=== PATIENT | male | born 1955 | race Caucasian/White ===

== ENCOUNTER 2020-01-05 11:02 | Outpatient (CLI) | payer BC, SELFPAY ==
--- NOTE | ~2020-01-05 | CT_ITS ---
EXAMINATION: CT abdomen w con EXAM DATE: 01/05/2020 13:08 INDICATION: Upper abdominal pain. TECHNIQUE: Spiral CT of the abdomen was performed following intravenous injection of 100 mL Omnipaque 350. Axial, coronal and sagittal images were reviewed. The dose-length product (DLP) for this exam ination was 181.02 mGy-cm. The exposure was tailored according to patient size (auto mA exposure con trol), and iterative reconstruction (ASIR) was used as additional dose reduction technique. Compariso n is made to prior examination from 08/04/2013. FINDINGS: The liver, spleen, adrenal glands and pancreas are unremarkable. Gallbladder is unremarkab le. No biliary obstruction. Portal and splenic veins are patent. Kidneys enhance symmetrically. T here is no hydronephrosis. There is no retroperitoneal lymphadenopathy. There is moderate scatte red arteriosclerotic disease. There is moderate scattered colonic diverticulosis. There is no adjacent inflammatory change to sugg est diverticulitis. The stomach and small bowel are unremarkable. There is expected amount of coloni c stool. No free intraperitoneal gas. The heart is normal in size. There are no pericardial or p leural effusions. The lung bases are unremarkable. There are no osteoblastic or osteolytic lesions identified. IMPRESSION: No acute intra-abdominal findings. Reviewed, dictated and finalized at location A.
[2020-01-05 11:15] LABS: Basophils Absolute Auto 0.05 K/mm3 (0.00-0.10); Basophils Percent Auto 0.6 % (0.0-1.0); Eosinophils Absolute Auto 0.24 K/mm3 (0.02-0.50); Eosinophils Percent Auto 2.8 % (1.0-6.0); Hematocrit 47.4 % (40.0-54.0); Hemoglobin 15.9 g/dL (14.0-18.0); Immature Granulocyte Absolute 0.04 K/mm3 (0.00-0.00); Immature Granulocyte Percent A 0.5 % (0.0-0.0); Lymphocytes Absolute Auto 2.46 K/mm3 (1.10-4.50); Lymphocytes Percent Auto 28.4 % (18.0-42.0); Mean Corpuscular HGB Conc 33.5 g/dL (32.0-36.0); Mean Corpuscular Hemoglobin 29.8 pg (27.0-31.0); Mean Corpuscular Volume 88.9 fL (78.0-102.0); Mean Platelet Volume 9.6 fl (8.7-11.0); Monocytes Absolute Auto 0.61 K/mm3 (0.10-0.90); Neutrophils Absolute Auto 5.3 K/mm3 (1.7-7.2); Neutrophils Percent Auto 60.7 % (50.0-70.0); Platelet Count Result 306 K/mm3 (150-420); Red Blood Count 5.33 M/mm3 (4.70-6.10); Red Cell Distribution Width 13.5 % (11.6-14.4); White Blood Count 8.7 K/mm3 (4.8-10.8)
[2020-01-05 11:28] LABS: Add Urine Microscopic? NO; Appearance Urine Clear (Clear); Bilirubin Urine Negative (Negative); Blood Urine Negative (Negative); Color Urine Yellow (Yellow); Glucose Urine UA Negative (Negative); Ketones Urine Negative (Negative); Leukocyte Esterase Ur Negative LEU/UL (Negative); Nitrate Urine Negative (Negative); Protein Urine Negative (Negative); Specific Grav Ur 1.015 (1.010-1.020); Urobilinogen Urine 0.2 mg/dL (0.2-1.0); pH Urine 7.5 (5.0-8.0)
[2020-01-05 11:32] LABS: Alanine Aminotransferase 22 U/L (16-63); Albumin Level 3.4 g/dL (3.4-5.0); Alkaline Phosphatase 81 U/L (46-116); Amylase 55 U/L (25-115); Anion Gap 10.3 mmol/L (7-16); Aspartate Amino Transferase 16 U/L (15-37); Bilirubin,Total 0.5 mg/dL (0.00-1.00); Blood Urea Nitrogen 12 mg/dL (7-18); Calcium 8.6 mg/dL (8.5-10.1); Carbon Dioxide 29 mmol/L (21-32); Chloride 103 mmol/L (98-108); Estimated Glomerular Filt Rate > 60; Glucose 102 mg/dL (70-99); Lipase 89 U/L (73-393); Osmolality Calculated 285 mOsm/kg (285-295); Potassium 4.3 mmol/L (3.5-5.1); Sodium 138 mmol/L (136-145); Total Protein 6.9 g/dL (6.4-8.2)
== END 2020-01-05 11:03 | disposition home or self-care (01) ==
PROVIDERS: PCP Family Medicine; Visit Provider Family Medicine
DX: R10.32 Left lower quadrant pain (principal)
CPT/HCPCS: 36415; 74160; 80053; 81003; 82150; 83690; 85025; Q9965

== ENCOUNTER 2020-03-17 06:17 | Emergency (ER) | payer BC, SELFPAY ==
[2020-03-17] VITALS (8 sets, daily range): BP systolic 107–112; BP diastolic 61–71; PULSE 72–84; RESP 16–28; TEMP 36.5–36.6; O2SAT 100
--- NOTE | ~2020-03-17 | XR_ITS ---
EXAMINATION: XR chest 1V portable EXAM DATE: 03/17/2020 08:28 INDICATION: Cough. Recent COVID exposure. TECHNIQUE: Portable AP frontal chest x-ray was obtained. Comparison is made to prior examination from 07/24/2017. FINDINGS: There is no focal air space disease. There are no pleural effusions. The cardiothymic tila houette is normal. There is no pneumothorax. There are no osseous or soft tissue abnormalities in t his skeletally immature patient. Lungs have normal volume. IMPRESSION: No acute cardiopulmonary findings. Reviewed, dictated and finalized at location A.
--- NOTE | 2020-03-17 06:48 | ECG_ITS ---
Measurements Intervals [place] Rate: 62 P: 53 MD: 206 QRS: 87 QRSD: 90 T: 41 QT: 380 QTc: 388 Interpretive Statements SINUS RHYTHM DELAYED PRECORDIAL R/S TRANSITION BORDERLINE ECG Electronically Signed On 03-17-2020 7:38:12 CDT by Hiram Bradford D.O.
--- NOTE | 2020-03-17 06:54 | ED.GENADULT ---
HPI - General Adult General Chief complaint: Shortness of Breath/Dyspnea Stated complaint: sob runny nose coughing Source: patient Mode of arrival: ambulatory Limitations: no limitations History of Present Illness HPI narrative: Kurt is a 64M with only a PMH of tobacco abuse that presented to the ED with cough and SOB. He had a little SOB last night but it was not bad. However, later this morning he started having much worse SOB, tachypnea, increased WOB and a dry cough. He also reports some nausea but no vomiting but no vomiting, and chest heaviness. He also reports 4 coworkers have had covid. 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 Related Data Home Medications Medication Instructions Recorded Confirmed No Home Medications 03/17/20 03/17/20 Allergies Allergy/AdvReac Type Severity Reaction Status Date / Time No Known Allergies Allergy Verified 03/17/20 06:34 Review of Systems Constitutional: Constitutional: Reports chills and Reports fatigue Eyes: Eyes: Reports no additional eye complaints ENT: Reports system reviewed and no additional complaints, except as documented Cardiovascular: Cardiovascular: Reports as per HPI Respiratory: Respiratory: Reports as per HPI Gastrointestinal: Gastrointestinal: Reports as per HPI Genitourinary: Genitourinary: Reports no additional male genitourinary complaints Musculoskeletal: Musculoskeletal: Reports no additional musculoskeletal complaints Integumentary/Breasts: Skin/Breast: Reports system reviewed and no additional complaints, except as docu Neurologic: Reports system reviewed and no additional complaints, except as documented Psychiatric: Psychiatric: Reports no additional psychiatric complaints Endocrine: Endocrine: Reports no additional endocrine complaints Hematologic/Lymphatic: Hematologic/Lymphatic: Reports no additional hematologic/lymphatic complaints Allergic/Immunologic: Allergic/Immunologic: Reports no additional allergic/immunologic complaints Exam Const: General: alert Orientation/consciousness: patient oriented x3 Limitations: No altered mental status Other: In moderate distress with notable increased work of breathing and a persistent labored breathing. HENMT: Head: normal to inspection Eyes: Conjunctivae: conjunctivae normal Pupils: Equal, round and reactive pupils present Neck: Neck: normal visual inspection Chest: Other: Barrell chest Resp: Effort & Inspection: labored, retractions and uses accessory muscles Other: Diffuse wheezes with prolonged expiratory phase and labored breathing. Cardio: Rate: regular rate Rhythm: regular rhythm GI: GI Palp: Yes Soft to palpation, No Tenderness to palpation present (GI) and No Guarding due to palpation present (GI) Skin: General skin exam: normal color Rashes: no rashes Neuro: General: patient oriented x3 and moves all extremities Extrem: General: normal to inspection Psych: Mental Status: mental status grossly normal Course Course Emergency Course: Kurt was evaluated. Ordered labs as below as well as EKG and CXR. Breathing treatments were ordered as well. Care was transferred to Dr. Mcdaniel at 0705. Vital Signs Vital signs: Vital Signs Temperature 97.7 F 03/17/20 06:25 Pulse Rate 72 03/17/20 06:25 Respiratory Rate 28 H 03/17/20 06:25 Blood Pressure 112/67 03/17/20 06:25 Pulse Oximetry 100 03/17/20 06:25 Temperature 97.7 F 03/17/20 06:25 Pulse Rate 72 03/17/20 06:30 Respiratory Rate 28 H 03/17/20 06:25 Blood Pressure 112/67 03/17/20 06:25 Pulse Oximetry 100 03/17/20 06:25 Medical Decision Making Vital Signs Vital Signs: Vital Signs Temperature 97.7 F 03/17/20 06:25 Pulse Rate 72 03/17/20 06:25 Respiratory Rate 28 H 03/17/20 06:25 Blood Pressure 112/67 03/17/20 06:25 Pulse Oximetry 100 03/17/20 06:25 Temperature 97.7 F 03/17/20 06:25 Pulse Rate 72 03/17/20 06:30 Respira
[2020-03-17] MEDS: IPRATROPIUM 0.5 MG/ALBUTEROL SULFATE 2.5 MG AMPUL.NEB 3 ML INHALATION (07:15)
[2020-03-17] MEDS: ALBUTEROL SULFATE NEB 2.5 MG/3 ML INH 10 MG INHALATION (07:16)
[2020-03-17 07:28] LABS: Basophils Absolute Auto 0.05 K/mm3 (0.00-0.10); Basophils Percent Auto 0.5 % (0.0-1.0); Eosinophils Absolute Auto 0.34 K/mm3 (0.02-0.50); Eosinophils Percent Auto 3.4 % (1.0-6.0); Hematocrit 44.5 % (40.0-54.0); Hemoglobin 14.9 g/dL (14.0-18.0); Immature Granulocyte Absolute 0.05 K/mm3 (0.00-0.00); Immature Granulocyte Percent A 0.5 % (0.0-0.0); Lymphocytes Absolute Auto 2.19 K/mm3 (1.10-4.50); Mean Corpuscular HGB Conc 33.5 g/dL (32.0-36.0); Mean Corpuscular Hemoglobin 29.5 pg (27.0-31.0); Mean Corpuscular Volume 88.1 fL (78.0-102.0); Mean Platelet Volume 9.6 fl (8.7-11.0); Monocytes Absolute Auto 0.61 K/mm3 (0.10-0.90); Monocytes Percent Auto 6.1 % (2.0-11.0); Neutrophils Absolute Auto 6.7 K/mm3 (1.7-7.2); Neutrophils Percent Auto 67.5 % (50.0-70.0); Platelet Count Result 332 K/mm3 (150-420); Red Blood Count 5.05 M/mm3 (4.70-6.10); Red Cell Distribution Width 13.8 % (11.6-14.4)
[2020-03-17 07:30] LABS: Base Excess ABG 0.7 mmol/L (0-2); HCO3 ABG 19.3 mmol/L (23-29); Oxygen Content ABG 21.8 %vol (16.0-22.0); Oxygen Saturation ABG 99.7 % (95-97); Oxyhemoglobin 96.7 % (94-100); PCO2 ABG 19.5 mmHg (35-45); PO2 ABG 252.5 mmHg (80-90); Total Hemoglobin 15.6 g/dL; pH ABG 7.61 (7.35-7.45)
[2020-03-17 07:34] LABS: Modified Allen's Test Pass; Site Drawn RIGHT RADIAL
[2020-03-17 07:40] LABS: D Dimer 0.37 mg/L (0.19-0.50); Prothrombin Time 10.5 Seconds (9.64-11.0)
[2020-03-17 07:45] LABS: Lactic Acid Reflex 1.2 mmol/L (0.4-2.0)
[2020-03-17 07:46] LABS: Influenza Control Valid (Valid)
[2020-03-17 07:48] LABS: Alanine Aminotransferase 22 U/L (16-63); Albumin Level 3.5 g/dL (3.4-5.0); Alkaline Phosphatase 78 U/L (46-116); Anion Gap 11 mmol/L (8-16); Aspartate Amino Transferase 13 U/L (15-37); Bilirubin,Total 0.4 mg/dL (0.00-1.00); Blood Urea Nitrogen 14 mg/dL (7-18); Calcium 8.6 mg/dL (8.5-10.1); Carbon Dioxide 23 mmol/L (21-32); Chloride 105 mmol/L (98-108); Estimated CRCL calculation 68 ml/min; Estimated Glomerular Filt Rate > 60; Glucose 99 mg/dL (70-99); Osmolality Calculated 288 mOsm/kg (285-295); Potassium 3.9 mmol/L (3.5-5.1); Sodium 139 mmol/L (136-145); Total Protein 6.9 g/dL (6.4-8.2)
[2020-03-17 07:50] LABS: BNP 57.1 pg/mL (0-100); CRP 0.5 mg/dL (0.0-0.9); Troponin I < 0.02 ng/mL (0.00-0.056)
--- NOTE | 2020-03-17 08:35 | ED.SOB ---
HPI - SOB/Dyspnea General Chief Complaint: Shortness of Breath/Dyspnea Stated Complaint: sob runny nose coughing Time Seen by Provider: 03/17/20 07:40 Source: patient Mode of arrival: ambulatory Limitations: no limitations History of Present Illness HPI Narrative: This is a 64-year-old gentleman with no previous past medical history is a long-time smoker presents with increased shortness of breath with a productive cough, no fever or chills, has been having symptoms over the past week with some runny nose and some fever blisters but denied any shortness of breath at that time. No known COVID exposure, although he has had friends visiting from [place]. No significant past medical history, currently no fevers, no chest pain or abdominal pain no nausea vomiting no diarrhea constipation. MD elicited complaint: shortness of breath and cough Onset (ago): day(s) Context: recent illness Timing: constant Severity: moderate Exacerbating factors: nothing Relieving factors: oxygen, bronchodilators and upright position Related Data Allergies Allergy/AdvReac Type Severity Reaction Status Date / Time No Known Allergies Allergy Verified 03/17/20 06:34 Review of Systems Review of Systems: All systems reviewed & are unremarkable except as noted in HPI and below PMFSH Past Medical History Medical History Tobacco abuse Exam Const: General: no acute distress and alert Orientation/consciousness: patient oriented x3 HENMT: Head: normal to inspection Eyes: Conjunctivae: conjunctivae normal Pupils: Equal, round and reactive pupils present Neck: Neck: normal visual inspection, no lymphadenopathy and no meningeal signs Chest: Chest palpation & inspection: normal inspection of the chest Resp: Effort & Inspection: normal respiratory effort Auscultation: clear to auscultation bilaterally Cardio: Rate: regular rate Rhythm: regular rhythm GI: GI Palp: Yes Soft to palpation Urinary Catheter: Urinary Catheter: patent and draining Back/Spine/Pelvis: Back: no CVA tenderness Skin: General skin exam: normal color Rashes: no rashes Neuro: General: patient oriented x3 Extrem: General: normal to inspection and no pedal edema Psych: Mental Status: mental status grossly normal Affect: normal affect Course Course Emergency Course: took over care from previous doctor, apparently patient presented with some shortness of breath with increased wheezing. Received nebulizer treatment and had improved significantly. Reassessment of patient lungs are clear with no audible wheezing no shortness of breath currently his vital signs in his O2 sats are stable O2 sats at 100% on room air he is breathing easy and comfortably, afebrile. Discussed with patient COVID testing was performed and that he should self isolate and will be sending medications and inhalers with the patient. Vital Signs Vital signs: Vital Signs Temperature 36.5 C 03/17/20 06:25 Pulse Rate 72 03/17/20 06:25 Respiratory Rate 28 H 03/17/20 06:25 Blood Pressure 112/67 03/17/20 06:25 Pulse Oximetry 100 03/17/20 06:25 Temperature 36.5 C 03/17/20 06:25 Pulse Rate 79 03/17/20 07:57 Respiratory Rate 20 03/17/20 07:57 Blood Pressure 107/61 03/17/20 07:57 Pulse Oximetry 100 03/17/20 07:57 MDM - SOB/Dyspnea Lab Data Result diagrams: 03/17/20 07:09 03/17/20 07:09 Labs: Lab Results 03/17/20 03/17/20 03/17/20 Range/Units 07:09 07:09 07:09 WBC 10.0 (4.8-10.8) K/mm3 RBC 5.05 (4.70-6.10) M/mm3 Hgb 14.9 (14.0-18.0) g/dL Hct 44.5 (40.0-54.0) % MCV 88.1 (78.0-102.0) fL MCH 29.5 (27.0-31.0) pg MCHC 33.5 (32.0-36.0) g/dL RDW 13.8 (11.6-14.4) % Plt Count 332 (150-420) K/mm3 MPV 9.6 (8.7-11.0) fl Immature Gran % (Auto) 0.5 H (0.0-0.0) % Neut % (Auto) 67.5 (50.0-70.0) % Lymph % (Auto) 22.0 (18.0-4
[2020-03-18 01:34] LABS: SARS-CoV-2 RNA PCR Negative
== END 2020-03-17 08:56 | disposition home or self-care (01) ==
PROVIDERS: Family Medicine; Emergency Provider Emergency Medicine; PCP Internal Medicine
DX: R06.00 Dyspnea, unspecified (principal); J44.9 Chronic obstructive pulmonary disease, unspecified; Z20.828 Contact with and (suspected) exposure to other viral communicable diseases; Z87.891 Personal history of nicotine dependence
CPT/HCPCS: 36415; 36600; 71045; 80053; 82805; 83605; 83880; 84484; 85025; 85380; 85610; 86140; 87635; 87804; 93005; 94640; 99284; C9803; U0003

== ENCOUNTER 2020-05-25 07:53 | Outpatient (RCR) | payer OTHER, SELFPAY ==
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
--- NOTE | 2020-06-06 12:40 | PTOPEVAL ---
Thank you for referring Kurt Callahan to [facility].? The patient is scheduled to be seen for therapy? ____x/week for ___ weeks. Please review, sign, date and return this plan of care UNRULY. I agree with and certify that the following plan of care is medically necessary. Referring Physician Date Admitting Provider: Attending Provider: PHYSICIAN NOT ON STAFF Referring Provider: *PT Outpatient Evaluation Start: 05/25/20 08:00 Freq: Status: Active Protocol: Document 06/06/20 09:00 [facility] (Rec: 06/06/20 09:55 [facility] [email or web address]) Therapy Assessment Status Assessment Status Assessment Status Re-evaluation Evaluation Information Problem Diagnosis L long head of biceps tear Subjective Information Patient states he received a Query Text:As Reported By Patient/ cortisone shot on 06/03 and he Family states he still has pain, but does not know if the shot has been able to work since it has been a short time. Pain Assessment Timing of Pain Assessment Timing of Pain Assessment Assessment Pain Scale Pain Scale Used Numeric (1 - 10) Self Report Pain Assessment Left Shoulder(s) Reported Pain Level 5 Pain Description Sharp,Shooting,Tender on Palpation Pain Frequency Continuous Lowest Pain Intensity 2 Greatest Pain Intensity 10 Pain Aggravating Factors Palpation Pain Behaviors Grimacing,Guarding Pain Score Pain Score 5: Self Report Interventions Used Interventions Used By Clinicians Activity or ADL's,Education, Electrical Stimulation, Exercise,Heat Upper Extremity Range of Motion General Upper Extremity Range of Motion Gross Upper Extremity Range of Motion L shoulder flexion: 140 deg Comments L shoulder ER: 62 L shoulder IR: 40 Upper Extremity Muscle Strength Testing General Upper Extremity Strength Gross Upper Extremity Strength Comments L shoulder flexion: 3+/5 L shoulder abduction: 3+/5 L shoulder ER: 3+/5 L shoulder IR: 3+/5 L elbow flexio: 3/5 Palpation Assessment Palpation Palpation Patient TTP with light palpation to bicep origin and in muscle belly. General Exercise General Exercises Exercise Description -PROM into shoulder flexion, Query Text:Record Sets, Reps, ER, IR x 10 minutes Resistance, and Position -pulleys x 5 minutes - bilateral shoulder extension
== END 2020-06-28 17:50 | disposition home or self-care (01) ==
LOC: CHSPT 07:53
PROVIDERS: PCP Internal Medicine
DX: S46.212A Strain of muscle, fascia and tendon of other parts of biceps, left arm, initial encounter (principal)
CPT/HCPCS: 97014; 97110; 97161; G0283

== ENCOUNTER 2020-08-22 10:56 | Outpatient (CLI) | payer OTHER, SELFPAY ==
--- NOTE | ~2020-08-22 | XR_ITS ---
EXAMINATION: XR chest 2V DATE: 08/22/2020 12:15 INDICATION: Cough and shortness of breath TECHNIQUE: PA and lateral views of the chest are obtained. COMPARISON: 03/17/2020 FINDINGS: The lungs are free of acute opacities. There is no pleural effusion or pneumothorax. The ca rdiomediastinal silhouette is normal. There is moderate thoracic spondylosis. IMPRESSION: 1. No acute cardiopulmonary abnormality. Reviewed, dictated and finalized at location A. TIVE RESTORER
[2020-08-22 12:13] LABS: Basophils Absolute Auto 0.05 K/mm3 (0.00-0.10); Basophils Percent Auto 0.5 % (0.0-1.0); Eosinophils Absolute Auto 0.27 K/mm3 (0.02-0.50); Eosinophils Percent Auto 2.7 % (1.0-6.0); Hematocrit 43.7 % (40.0-54.0); Hemoglobin 14.5 g/dL (14.0-18.0); Immature Granulocyte Absolute 0.06 K/mm3 (0.00-0.00); Immature Granulocyte Percent A 0.6 % (0.0-0.0); Lymphocytes Percent Auto 27.9 % (18.0-42.0); Mean Corpuscular HGB Conc 33.2 g/dL (32.0-36.0); Mean Corpuscular Volume 90.5 fL (78.0-102.0); Mean Platelet Volume 9.6 fl (8.7-11.0); Monocytes Absolute Auto 0.66 K/mm3 (0.10-0.90); Monocytes Percent Auto 6.6 % (2.0-11.0); Neutrophils Absolute Auto 6.2 K/mm3 (1.7-7.2); Neutrophils Percent Auto 61.7 % (50.0-70.0); Platelet Count Result 342 K/mm3 (150-420); Red Blood Count 4.83 M/mm3 (4.70-6.10); Red Cell Distribution Width 13.6 % (11.6-14.4)
[2020-08-22 12:48] LABS: SARS-CoV-2 Ag Negative (Negative)
[2020-08-22 12:55] LABS: Alanine Aminotransferase 30 U/L (16-63); Albumin Level 3.5 g/dL (3.4-5.0); Alkaline Phosphatase 78 U/L (46-116); Anion Gap 9 mmol/L (8-16); Aspartate Amino Transferase 17 U/L (15-37); Bilirubin,Total 0.4 mg/dL (0.00-1.00); Blood Urea Nitrogen 12 mg/dL (7-18); Calcium 8.6 mg/dL (8.5-10.1); Carbon Dioxide 27 mmol/L (21-32); Chloride 104 mmol/L (98-108); Estimated Glomerular Filt Rate > 60; Glucose 105 mg/dL (70-99); Osmolality Calculated 289 mOsm/kg (285-295); Potassium 3.9 mmol/L (3.5-5.1); Sodium 140 mmol/L (136-145); Total Protein 6.4 g/dL (6.4-8.2)
[2020-08-23 12:21] LABS: SARS-CoV-2 RNA PCR Negative
[2020-08-27 12:52] LABS: Reference Lab Test Result Negative
== END 2020-08-22 10:57 | disposition home or self-care (01) ==
LOC: CHSLAB 11:01
PROVIDERS: PCP Internal Medicine; Visit Provider Internal Medicine
DX: J00 Acute nasopharyngitis [common cold] (principal); R11.0 Nausea; R19.7 Diarrhea, unspecified; R06.00 Dyspnea, unspecified; Z20.822 Contact with and (suspected) exposure to COVID-19
CPT/HCPCS: 36415; 71046; 80053; 85025; 86769; 87426; C9803; U0003; U0005

== ENCOUNTER 2020-08-26 15:15 | Outpatient (CLI) | payer OTHER, SELFPAY ==
--- NOTE | ~2020-08-26 | CT_ITS ---
EXAMINATION: CT abdomen pelvis w con DATE: 08/26/2020 16:31 INDICATION: Abdominal pain TECHNIQUE: Computed tomography (CT) of the abdomen and pelvis was performed with 100 cc Omnipaque 350 intravenous contrast. The dose-length product was 363.91 mGy-cm. Automated exposure control and iter ative reconstruction technique were employed. COMPARISON: CT dated 01/05/2020 and 08/04/2013 FINDINGS: Lung bases are unremarkable. Heart size normal. No significant pleural or pericardial effus ion. There are hypodense lesions of both kidneys, largest mid lateral aspect of the left kidney measu ring 1.3 cm which measures 40 Hounsfield units, likely a hyperdense cyst. The liver, spleen, pancreas, adrenal glands are unremarkable. Gallbladder is present. Small hiatal he rnia. Colonic diverticulosis without evidence for diverticulitis. No obstruction. Normal appendix. No free air or free fluid. Moderate atherosclerosis without aneurysm. No lymphadenopathy. Moderate td mbar spondylosis. No lytic or blastic lesions. IMPRESSION: 1. No acute abdominal abnormality. No findings to account for patient's symptoms. Reviewed, dictated and finalized at location A. GE CONSTRUCTION INSPECTOR IMPRESSION: 1. No acute abdominal abnormality. No findings to account for patient's symptom s.
== END 2020-08-26 15:16 | disposition home or self-care (01) ==
LOC: CHSIMG 15:17
PROVIDERS: PCP Internal Medicine; Visit Provider Internal Medicine
DX: R10.9 Unspecified abdominal pain (principal)
CPT/HCPCS: 74177; Q9967

== ENCOUNTER 2020-08-28 08:05 | Outpatient (NON) | payer OTHER, SELFPAY ==
[2020-08-28 08:17] LABS: Occult Blood Negative (Negative)
[2020-08-28 08:17] LABS: Occult Blood Negative (Negative)
[2020-08-28 08:17] LABS: Occult Blood Negative (Negative)
== END 2020-08-28 08:06 ==
PROVIDERS: PCP Internal Medicine; Visit Provider Nurse Practitioner Family
DX: R10.9 Unspecified abdominal pain (principal); R19.7 Diarrhea, unspecified
CPT/HCPCS: 82272; 84376; 87045; 87046; 87177; 87209; 87324; 87427

== ENCOUNTER 2020-11-24 09:33 | Outpatient (CLI) | payer OTHER, SELFPAY ==
[2020-11-24 09:44] LABS: Basophils Absolute Auto 0.04 K/mm3 (0.00-0.10); Basophils Percent Auto 0.4 % (0.0-1.0); Eosinophils Absolute Auto 0.29 K/mm3 (0.02-0.50); Eosinophils Percent Auto 2.9 % (1.0-6.0); Hematocrit 46.9 % (40.0-54.0); Hemoglobin 15.7 g/dL (14.0-18.0); Immature Granulocyte Absolute 0.06 K/mm3 (0.00-0.00); Immature Granulocyte Percent A 0.6 % (0.0-0.0); Lymphocytes Absolute Auto 2.14 K/mm3 (1.10-4.50); Lymphocytes Percent Auto 21.3 % (18.0-42.0); Mean Corpuscular HGB Conc 33.5 g/dL (32.0-36.0); Mean Corpuscular Hemoglobin 29.5 pg (27.0-31.0); Mean Corpuscular Volume 88.2 fL (78.0-102.0); Mean Platelet Volume 9.4 fl (8.7-11.0); Monocytes Absolute Auto 0.71 K/mm3 (0.10-0.90); Monocytes Percent Auto 7.1 % (2.0-11.0); Neutrophils Absolute Auto 6.8 K/mm3 (1.7-7.2); Neutrophils Percent Auto 67.7 % (50.0-70.0); Platelet Count Result 368 K/mm3 (150-420); Red Blood Count 5.32 M/mm3 (4.70-6.10); Red Cell Distribution Width 13.6 % (11.6-14.4)
[2020-11-24 10:00] LABS: Add Urine Microscopic? YES; Appearance Urine Clear (Clear); Bilirubin Urine Negative (Negative); Blood Urine Negative (Negative); Color Urine Yellow (Yellow); Glucose Urine UA Negative (Negative); Ketones Urine Negative (Negative); Leukocyte Esterase Ur Trace LEU/UL (Negative); Nitrate Urine Negative (Negative); Protein Urine Negative (Negative); Specific Grav Ur >= 1.030 (1.010-1.020); Urobilinogen Urine 0.2 mg/dL (0.2-1.0); pH Urine 5.5 (5.0-8.0)
[2020-11-24 10:04] LABS: RBC Urine 0-2 /hpf (0-2); Squamous Epithelial Cell Urine None seen /hpf (Few); WBC Urine 0-3 /hpf (0-3)
[2020-11-24 10:05] LABS: Bacteria Urine 1+ /hpf
[2020-11-24 10:06] LABS: Prothrombin Time 10.9 Seconds (9.50-12.10)
[2020-11-24 10:08] LABS: Alanine Aminotransferase 23 U/L (16-63); Albumin Level 3.6 g/dL (3.4-5.0); Alkaline Phosphatase 90 U/L (46-116); Anion Gap 11 mmol/L (8-16); Aspartate Amino Transferase 12 U/L (15-37); Bilirubin,Total 0.4 mg/dL (0.00-1.00); Blood Urea Nitrogen 11 mg/dL (7-18); Calcium 8.9 mg/dL (8.5-10.1); Carbon Dioxide 26 mmol/L (21-32); Chloride 100 mmol/L (98-108); Estimated Glomerular Filt Rate > 60; Glucose 105 mg/dL (70-99); Osmolality Calculated 283 mOsm/kg (285-295); Potassium 4.2 mmol/L (3.5-5.1); Sodium 137 mmol/L (136-145); Total Protein 6.7 g/dL (6.4-8.2)
== END 2020-11-24 09:34 | disposition home or self-care (01) ==
LOC: CHSLAB 09:36
PROVIDERS: PCP Internal Medicine; Visit Provider Internal Medicine
DX: R10.9 Unspecified abdominal pain (principal); R19.5 Other fecal abnormalities
CPT/HCPCS: 36415; 80053; 81001; 85025; 85610; 85730

== ENCOUNTER 2021-05-03 08:49 | Emergency (ER) | payer OTHER, SELFPAY ==
--- NOTE | ~2021-05-03 | XR_ITS ---
EXAMINATION: XR chest 2V EXAM DATE: 05/03/2021 11:05 INDICATION: Chest pain w/ SOB [id number], hx COPD. TECHNIQUE: Frontal and lateral projections of the chest obtained and reviewed. Comparison is made to prior examination from 08/22/2020. FINDINGS: The lungs are clear. There are no pleural effusions. The cardiomediastinal silhouette is within normal limits. There is no pneumothorax suspected. The bones and soft tissues are unremarkab le. IMPRESSION: No acute cardiopulmonary findings. Reviewed, dictated and finalized at location B. ER IRONER
--- NOTE | 2021-05-03 08:54 | ECG_ITS ---
Measurements Intervals [place] Rate: 64 P: 80 PA: 206 QRS: 70 QRSD: 87 T: 78 QT: 365 QTc: 379 Interpretive Statements SINUS RHYTHM DELAYED PRECORDIAL R/S TRANSITION BASELINE ARTIFACT- I, II, III, AVR, AVL, AVF, V1-V2, V5-V6 BORDERLINE ECG Electronically Signed On 05-03-2021 10:24:06 EYELET PUNCH OPERATOR by Hiram Bradford D.O.
[2021-05-03 09:08] VITALS: BP 105/81; PULSE 71; RESP 20; TEMP 36.4; O2SAT 98
[2021-05-03 09:17] VITALS: PULSE 63
[2021-05-03 09:20] LABS: Base Excess ABG -0.9 mmol/L (0-2); HCO3 ABG 20.3 mmol/L (23-29); Oxygen Saturation ABG 97.5 % (95-97); Oxyhemoglobin 94.5 % (94-100); PCO2 ABG 26.3 mmHg (35-45); PO2 ABG 94.5 mmHg (80-90); Total Hemoglobin 16.5 g/dL (12.0-18.0); pH ABG 7.51 (7.35-7.45)
[2021-05-03 09:25] LABS: Basophils Absolute Auto 0.06 K/mm3 (0.00-0.10); Basophils Percent Auto 0.7 % (0.0-1.0); Eosinophils Absolute Auto 0.24 K/mm3 (0.02-0.50); Eosinophils Percent Auto 2.8 % (1.0-6.0); Hematocrit 47.8 % (40.0-54.0); Hemoglobin 16.3 g/dL (14.0-18.0); Immature Granulocyte Absolute 0.05 K/mm3 (0.00-0.00); Immature Granulocyte Percent A 0.6 % (0.0-0.0); Lymphocytes Absolute Auto 2.34 K/mm3 (1.10-4.50); Lymphocytes Percent Auto 27.5 % (18.0-42.0); Mean Corpuscular HGB Conc 34.1 g/dL (32.0-36.0); Mean Corpuscular Hemoglobin 29.8 pg (27.0-31.0); Mean Corpuscular Volume 87.4 fL (78.0-102.0); Mean Platelet Volume 9.6 fl (8.7-11.0); Monocytes Absolute Auto 0.73 K/mm3 (0.10-0.90); Monocytes Percent Auto 8.6 % (2.0-11.0); Neutrophils Absolute Auto 5.1 K/mm3 (1.7-7.2); Neutrophils Percent Auto 59.8 % (50.0-70.0); Platelet Count Result 313 K/mm3 (150-420); Red Blood Count 5.47 M/mm3 (4.70-6.10); Red Cell Distribution Width 13.2 % (11.6-14.4); White Blood Count 8.5 K/mm3 (4.8-10.8)
[2021-05-03 09:32] LABS: Device ROOM AIR; Modified Allen's Test Pass; Site Drawn RIGHT RADIAL
[2021-05-03] MEDS: SODIUM CHLORIDE 0.9% IV 500 ML 999 ML IV CONT (09:39)
[2021-05-03 09:40] LABS: Alanine Aminotransferase 20 U/L (16-63); Albumin Level 3.4 g/dL (3.4-5.0); Alkaline Phosphatase 91 U/L (46-116); Anion Gap 12 mmol/L (8-16); Aspartate Amino Transferase 10 U/L (15-37); Bilirubin,Total 0.5 mg/dL (0.00-1.00); Blood Urea Nitrogen 14 mg/dL (7-18); Calcium 8.6 mg/dL (8.5-10.1); Carbon Dioxide 21 mmol/L (21-32); Chloride 100 mmol/L (98-108); Estimated CRCL calculation 63 ml/min; Estimated Glomerular Filt Rate > 60; Glucose 121 mg/dL (70-99); Osmolality Calculated 277 mOsm/kg (285-295); Potassium 3.9 mmol/L (3.5-5.1); Sodium 133 mmol/L (136-145); Total Protein 6.9 g/dL (6.4-8.2)
[2021-05-03] MEDS: ASPIRIN 325 MG ENTERIC TABLET PO (09:44)
[2021-05-03 10:35] LABS: SARS-CoV-2 RNA PCR Negative (Negative)
[2021-05-03] MEDS: KETOROLAC (*BKC) 60 MG/2 ML VIAL IM (10:45)
--- NOTE | 2021-05-03 11:50 | ED.SOB ---
HPI - SOB/Dyspnea General Chief Complaint: Shortness of Breath/Dyspnea Stated Complaint: CHEST PAIN Time Seen by Provider: 05/03/21 08:51 Source: patient and RN notes reviewed Mode of arrival: ambulatory Limitations: no limitations History of Present Illness MD elicited complaint: pain with inspiration and chest pain Pertinent past history: COPD Onset (ago): hour(s) Timing: constant Severity: mild Exacerbating factors: inspiration Relieving factors: nothing Known history of: COPD Associated symptoms: chest pain and pain with inspiration Treatment prior to arrival: none Related Data Allergies Allergy/AdvReac Type Severity Reaction Status Date / Time No Known Allergies Allergy Verified 03/17/20 06:34 Review of Systems Review of Systems: All systems reviewed & are unremarkable except as noted in HPI and below Cardiovascular: Cardiovascular: Reports chest pain PMFSH Past Medical History Medical History (Updated 05/21/21 @ 08:39 by Gavin Melendrez MD) Chest pain made worse by breathing Tobacco abuse Exam Const: General: no acute distress and alert Nutritional Appearance: well nourished Orientation/consciousness: patient oriented x3 Limitations: no limitations HENMT: Head: normal to inspection Ears: external ears normal and TM's normal bilaterally General nose exam: Normal external nose present and Normal nares present Mouth: Yes moist mucous membranes Throat: posterior oropharynx normal Eyes: Conjunctivae: conjunctivae normal Pupils: Equal, round and reactive pupils present EOM: EOMs intact bilaterally Neck: Neck: normal visual inspection and no lymphadenopathy Chest: Chest palpation & inspection: normal inspection of the chest Resp: Effort & Inspection: normal respiratory effort Auscultation: rhonchi Cardio: Rate: regular rate Rhythm: regular rhythm GI: GI Palp: Yes Soft to palpation and No Tenderness to palpation present (GI) Percussion: Yes normal to percussion Auscultation: normal bowel sounds : General: Yes no CVA tenderness Male General Exam: Yes normal external exam Testes: Testes normal Back/Spine/Pelvis: Back: no CVA tenderness Skin: General skin exam: normal color Rashes: no rashes Neuro: General: patient oriented x3, moves all extremities, no meningeal signs, no focal motor deficits and CN's II-XI intact bilaterally Extrem: General: normal to inspection and no pedal edema Psych: Mental Status: mental status grossly normal Affect: normal affect Attitude: cooperative Thought content: Yes Normal thought content present Course Course Emergency Course: Pt was stable in the ED, less chest pain. Reevaluation(s) Reevaluation #1: VSS. no persistent acute chest pain in the ED Date: 05/03/21 Time: 09:50 Vital Signs Vital signs: Vital Signs Temperature 36.4 C 05/03/21 09:08 Pulse Rate 71 05/03/21 09:08 Respiratory Rate 20 05/03/21 09:08 Blood Pressure 105/81 05/03/21 09:08 Pulse Oximetry 98 05/03/21 09:08 Temperature 36.7 C 05/03/21 12:08 Pulse Rate 56 L 05/03/21 12:08 Respiratory Rate 20 05/03/21 12:08 Blood Pressure 130/75 05/03/21 12:08 Pulse Oximetry 96 05/03/21 12:08 MDM - SOB/Dyspnea Differential Diagnosis Differential diagnosis: Likely acute exacerbation of chronic obstructive airways disease, congestive heart failure, community acquired pneumonia, asthma with exacerbation and pulmonary embolism Medical Records Attestation: I reviewed the patient's medical records. Lab Data Attestation: I reviewed the patient's lab results. Result diagrams: 05/03/21 09:18 05/03/21 09:18 Labs: Lab Results 05/03/21 05/03/21 05/03/21 Range/Units 09:18 09:18 09:18 WBC 8.5 (4.8-10.8) K/mm3 RBC 5.47 (4.70-6.10) M/mm3 Hgb 16.3 (14.0-18.0) g/dL Hct 47.8 (40.0-54.0) % MCV 87.4 (78.0-102.0) fL MCH 29.8 (27.0-31.0) pg MCHC 34.1 (32.0-36.0) g/dL RDW 13.2 (11.6-14.4) % Plt
[2021-05-03 12:08] VITALS: BP 130/75; PULSE 56; RESP 20; TEMP 36.7; O2SAT 96
== END 2021-05-03 12:10 | disposition home or self-care (01) ==
PROVIDERS: Emergency Provider Emergency Medicine; PCP Internal Medicine
DX: R07.9 Chest pain, unspecified (principal); Z20.822 Contact with and (suspected) exposure to COVID-19
CPT/HCPCS: 36415; 36600; 71046; 80053; 82805; 84484; 85025; 93005; 96360; 96372; 99283; 99284; A9270; C9803; J1885; J7040; U0003; U0005

== ENCOUNTER 2022-07-15 11:53 | Emergency (ER) | payer MEDICARE, SELFPAY ==
[2022-07-15 11:55] VITALS: BP 129/89; PULSE 108; RESP 20; TEMP 36.5; O2SAT 97
--- NOTE | 2022-07-15 12:15 | ED.GENADULT ---
HPI - General Adult General Chief complaint: Allergic Reaction Stated complaint: allergic reaction on body Time Seen by Provider: 07/15/22 12:00 History of Present Illness HPI narrative: Kurt is a 67M with a PMH of diverticulitis that presented to the ED with a rash. He took ciprofloxacin, metronidazole and nortriptyline for what he thought was an episode of diverticulitis then, minutes later broke out in hives, felt flushed, had palpitations and trouble swelling. All of the symptoms resolved except the diffuse itchy rash. He no longer has any palpitations, wheezing or swelling in his throat. Related Data Home Medications Medication Instructions Recorded Confirmed ciprofloxacin HCl 500 mg tablet 500 mg PO Q12H 07/15/22 07/15/22 (Cipro) metronidazole 500 mg tablet 500 mg PO Q8H 07/15/22 07/15/22 nortriptyline 10 mg capsule 10 mg PO BID 07/15/22 07/15/22 Allergies Allergy/AdvReac Type Severity Reaction Status Date / Time No Known Allergies Allergy Verified 03/17/20 06:34 Review of Systems Review of Systems: All systems reviewed & are unremarkable except as noted in HPI and below [facility] Past Medical History Medical History Chest pain made worse by breathing Tobacco abuse Exam Const: General: healthy appearing, no acute distress and alert Nutritional Appearance: well nourished HENMT: Head: normal to inspection Ears: external ears normal Face/Nose/Sinus: Normal external nose present Face and sinus: normal facial exam Mouth: Yes Normal oral and palatal mucosa present Eyes: Conjunctivae: conjunctivae normal Pupils: Equal, round and reactive pupils present EOM: EOMs intact bilaterally Neck: Neck: normal visual inspection Chest: Chest palpation & inspection: normal inspection of the chest Resp: Effort & Inspection: normal respiratory effort Auscultation: clear to auscultation bilaterally Cardio: Rate: regular rate Rhythm: regular rhythm GI: Inspection: non-distended GI Palp: Yes Soft to palpation and No Tenderness to palpation present (GI) Back/Spine/Pelvis: Back: no CVA tenderness Skin: Other: diffuse maculopapular rash all over the trunk and upper extremities Neuro: General: patient oriented x3 and moves all extremities Cranial nerves: Yes Nystagmus not present Extrem: General: normal to inspection Psych: Mental Status: mental status grossly normal Course Course Emergency Course: He felt better after the benadryl and the rash started to subside. He continues to be free of other symptoms. Vital Signs Vital signs: Vital Signs Temperature 97.7 F 07/15/22 11:55 Pulse Rate 108 H 07/15/22 11:55 Respiratory Rate 20 07/15/22 11:55 Blood Pressure 129/89 07/15/22 11:55 Pulse Oximetry 97 07/15/22 11:55 Oxygen Delivery Room Air 07/15/22 11:55 Temperature 97.7 F 07/15/22 12:45 Pulse Rate 72 07/15/22 12:45 Respiratory Rate 07/15/22 12:45 Blood Pressure 116/76 07/15/22 12:45 Pulse Oximetry 97 07/15/22 12:45 Oxygen Delivery Room Air 07/15/22 12:45 Medical Decision Making Vital Signs Vital Signs: Vital Signs Temperature 97.7 F 07/15/22 11:55 Pulse Rate 108 H 07/15/22 11:55 Respiratory Rate 07/15/22 11:55 Blood Pressure 129/89 07/15/22 11:55 Pulse Oximetry 97 07/15/22 11:55 Oxygen Delivery Room Air 07/15/22 11:55 Temperature 97.7 F 07/15/22 12:45 Pulse Rate 72 07/15/22 12:45 Respiratory Rate 07/15/22 12:45 Blood Pressure 116/76 07/15/22 12:45 Pulse Oximetry 97 07/15/22 12:45 Oxygen Delivery Room Air 07/15/22 12:45 Discharge Plan Discharge Clinical Impression: Allergic reaction caused by a drug Patient Disposition: Home, Self-Care Condition: Stable Instructions: Acute Rash (ED) Prescriptions: No Action albuterol sulfate [ProAir HFA] 90 mcg/actuation HFA aerosol inhaler 2 puff INHALATION QID PRN (Reason:
[2022-07-15] MEDS: diphenhydrAMINE HCl INJ 50 MG/ML VIAL IM (12:16)
[2022-07-15] MEDS: FAMOTIDINE 20 MG TABLET PO (12:17)
[2022-07-15 12:45] VITALS: BP 116/76; PULSE 72; RESP 20; TEMP 36.5; O2SAT 97
== END 2022-07-15 13:00 | disposition home or self-care (01) ==
PROVIDERS: Emergency Provider Family Medicine; PCP Internal Medicine
DX: L27.0 Generalized skin eruption due to drugs and medicaments taken internally (principal); T37.8X5A Adverse effect of other specified systemic anti-infectives and antiparasitics, initial encounter; T43.015A Adverse effect of tricyclic antidepressants, initial encounter; T36.8X5A Adverse effect of other systemic antibiotics, initial encounter
CPT/HCPCS: 96372; 99283; A9270; J1200

== ENCOUNTER 2022-12-04 08:54 | Outpatient (CLI) | payer MEDICARE, SELFPAY ==
[2022-12-04 09:08] LABS: Hematocrit 46.8 % (37.0-46.0); Hemoglobin 15.4 g/dL (12.4-15.3); Mean Corpuscular HGB Conc 32.9 g/dL (32.0-36.0); Mean Corpuscular Hemoglobin 29.2 pg (27.0-31.0); Mean Corpuscular Volume 88.8 fL (78.0-102.0); Mean Platelet Volume 9.7 fl (8.7-11.0); Platelet Count Result 296 K/mm3 (150-420); Red Blood Count 5.27 M/mm3 (4.70-6.10); Red Cell Distribution Width 13.5 % (11.6-14.4); White Blood Count 7.3 K/mm3 (4.8-10.8)
[2022-12-04 09:45] LABS: Alanine Aminotransferase 24 U/L (16-63); Albumin Level 3.7 g/dL (3.4-5.0); Alkaline Phosphatase 85 U/L (46-116); Anion Gap 9 mmol/L (8-16); Aspartate Amino Transferase 19 U/L (15-37); Bilirubin,Total 0.5 mg/dL (0.00-1.00); Blood Urea Nitrogen 11 mg/dL (7-18); Calcium 8.8 mg/dL (8.5-10.1); Carbon Dioxide 26 mmol/L (21-32); Chloride 104 mmol/L (98-108); Cholesterol 219 mg/dL (0-200); Estimated Glomerular Filt Rate > 60; Glucose 98 mg/dL (70-99); HDL Direct 48 mg/dL (40-60); LDL Cholesterol Calculated 157 mg/dL (<130); Osmolality Calculated 287 mOsm/kg (285-295); Potassium 4.7 mmol/L (3.5-5.1); Sodium 139 mmol/L (136-145); Total Protein 6.7 g/dL (6.4-8.2); Triglycerides 72 mg/dL (0-150)
== END 2022-12-04 08:55 | disposition home or self-care (01) ==
LOC: CHSLAB 08:57
PROVIDERS: PCP Family Medicine; Visit Provider Family Medicine
DX: Z13.6 Encounter for screening for cardiovascular disorders (principal); Z87.891 Personal history of nicotine dependence
CPT/HCPCS: 36415; 80053; 80061; 85027

== ENCOUNTER 2022-12-10 15:28 | Outpatient (CLI) | payer MEDICARE, SELFPAY ==
--- NOTE | ~2022-12-10 | CT_ITS ---
CT Scan of the Chest without Contrast: Clinical Indication: Lung cancer screening, personal history of nicotine dependence Technique: Contiguous sections were acquired throughout the chest without intravenous contrast. Dose reduction technique was used on this scan by utilizing automated exposure control and iterative recon struction technique. The dose-length product (DLP) was 97.60 mGy-cm. Findings: There is no evidence of any significant mediastinal, hilar or axillary lymphadenopathy. There are ath erosclerotic calcifications of the aorta and coronary arteries. There is no evidence of pleural or pericardial effusion. The lungs are clear. No pulmonary nodules or infiltrates are noted. Images through the upper abdomen reveal no abnormalities. Impression: Lung RADS 1: Negative. 12 month follow-up screening CT advised. Reviewed, dictated and finalized at location . Impression: Lung RADS 1: Negative. 12 month follow-up screening CT advised.
== END 2022-12-10 15:29 | disposition home or self-care (01) ==
LOC: CHSIMG 15:30
PROVIDERS: PCP Family Medicine; Visit Provider Family Medicine
DX: Z12.2 Encounter for screening for malignant neoplasm of respiratory organs (principal); Z87.891 Personal history of nicotine dependence
CPT/HCPCS: 71271

== ENCOUNTER 2023-03-11 14:41 | Outpatient (CLI) | payer MEDICARE, SELFPAY ==
--- NOTE | ~2023-03-11 | US_ITS ---
EXAMINATION: US soft tissue abdomen DATE: 03/11/2023 15:04 INDICATION: R10.32 - Left lower quadrant pain, heavy lifting overhead 2 weeks ago, felt a pull/pop, i ncreasing pain. Rule out hernia. TECHNIQUE: Grayscale and Doppler ultrasound images of the were obtained. COMPARISON: None. FINDINGS: The area of clinical concern in the left lower quadrant was sonographically interrogated, r evealing no sonographic abnormality. IMPRESSION: Normal soft tissue ultrasound findings in the area of clinical concern. Reviewed, dictated and finalized at location K.
== END 2023-03-11 14:42 | disposition home or self-care (01) ==
LOC: CHSIMG 14:42
PROVIDERS: PCP Family Medicine; Visit Provider Nurse Practitioner Family
DX: M79.18 Myalgia, other site (principal); R10.32 Left lower quadrant pain
CPT/HCPCS: 76705

== ENCOUNTER 2023-04-29 10:49 | Emergency (ER) | payer MEDICARE, SELFPAY ==
--- NOTE | ~2023-04-29 | CT_ITS ---
EXAMINATION: CT brain wo con DATE: 04/29/2023 11:22 INDICATION: Head and neck injury 4 days ago. Struck base of skull and neck on shelf TECHNIQUE: Computed tomography (CT) of the head was performed without intravenous contrast. The mA wa s adjusted according to patient size. Iterative reconstruction technique was employed. Exam dose: 60 5.33 mGy-cm total exam DLP. COMPARISON: None FINDINGS: There are prominent bilateral carotid siphon internal carotid artery calcifications. No intracranial mass lesion or hemorrhage or cerebrovascular accident, midline shift, mass effect or subdural or epidural hematoma is detected. Normal size of the ventricles. The orbits are unremarkable. No fracture or bone destruction of the cranial vault. The mastoid air cells and included paranasal si nuses are unremarkable. IMPRESSION: No skull fracture or acute intracranial finding Cerebral atherosclerosis Reviewed, dictated and finalized at Location A. Reviewed, dictated and finalized at location B. [employer]
--- NOTE | ~2023-04-29 | CT_ITS ---
EXAMINATION: CT cervical spine wo con DATE: 04/29/2023 11:23 INDICATION: Neck injury. TECHNIQUE: Computed tomography (CT) of the cervical spine was performed without intravenous contrast. Automated exposure control and iterative reconstruction technique were employed. The dose-length pro duct was 605.33 mGy-cm. COMPARISON: None FINDINGS: There is mild emphysema. There is 4 degrees levocurvature of cervicothoracic spine. Vertebr al body heights are normal. There is severely decreased disc height from C3-C4 through C7-T1. The fol lowing disc levels are specifically discussed: C2-C3: There is no uncovertebral joint osteoarthritis. There is severe bilateral facet joint osteoart hritis. There is mild right neural foraminal stenosis. There is no central canal stenosis. C3-C4: There is severe bilateral uncovertebral joint osteoarthritis. There is severe bilateral facet joint osteoarthritis. There is moderate right and mild left neural foraminal stenosis. There is mild central canal stenosis. C4-C5: There is severe bilateral uncovertebral joint osteoarthritis. There is severe bilateral facet joint osteoarthritis. There is mild bilateral neural foraminal stenosis. There is mild central canal stenosis. C5-C6: There is severe bilateral uncovertebral joint osteoarthritis. There is severe right and modera te left facet joint osteoarthritis. There is mild right neural foraminal stenosis. There is mild cent ral canal stenosis. C6-C7: There is severe bilateral uncovertebral joint osteoarthritis. There is mild bilateral facet elpidio int osteoarthritis. There is mild bilateral neural foraminal stenosis. There is mild central canal st enosis. C7-T1: There is severe bilateral uncovertebral joint osteoarthritis. There is mild bilateral facet elpidio int osteoarthritis. There is mild bilateral neural foraminal stenosis. There is mild central canal st enosis. IMPRESSION: 1. No fracture. 2. Severe cervical spondylosis. Reviewed, dictated and finalized at location A. [employer] MEMBER
[2023-04-29 10:50] VITALS: BP 136/80; PULSE 73; RESP 18; TEMP 36.3; O2SAT 99
--- NOTE | 2023-04-29 10:54 | ED.FALL ---
HPI - Fall General Chief Complaint: Head Injury Stated Complaint: HEAD INJURY Time Seen by Provider: 04/29/23 10:54 History of Present Illness HPI Narrative: Patient is a 67-year-old male here after head injury. He believes that the head injury occurred , 04/25. He notes he was bent down to get something off of a shelf at work. When he was standing up he hit his posterior occiput on a metal shelf support. he denies loss of consciousness. He states that he initially felt a little bit in a days but seemed to resolve enough for him to continue working throughout the day. He went to work the next day as well. Yesterday morning he woke up with a lump on the back of his head and pain in his upper neck that goes into the back of his head. He has continued neck and head pain and notes that he feels as though he is in a daze and is a bit unsteady on his feet. He has been taking leftover Diclofenac for pain which does seem to be helping. He denies any numbness or weakness in his arms or legs. No bowel or bladder incontinence. No saddle anesthesia. No blood thinner use. Related Data Allergies Allergy/AdvReac Type Severity Reaction Status Date / Time No Known Allergies Allergy Verified 04/29/23 10:58 Review of Systems Review of Systems: All systems reviewed & are unremarkable except as noted in HPI and below PMFSH Past Medical History Medical History Chest pain made worse by breathing Colon polyp Tobacco abuse Surgical History Surgical History Hx of shoulder surgery Social History Social History Smoking status: Current every day smoker Alcohol intake: never Substance use: current Substance use type: marijuana Lack of Transportation: No Lack of Food: Never True Current Housing: I Have Housing Concerned About Future Housing: No Difficulty Paying Gas/Electric Bills: No Difficulty Paying for Meds: No Currently Unemployed: No Education: High School Diploma/GED Difficulty w/ Childcare or Family Care: No Living arrangements: with family Occupation/Education: occupation Additional occupation/education comments: Works for [employer] Exam Narrative: GENERAL: Well-appearing, well-nourished, and in no acute distress. HEAD: Normocephalic, tenderness over the posterior occiput with small hematoma noted. No overlying laceration or abrasion. EYES: PERRLA and EOMI. ENT: Nares clear. Mucous membranes moist. NECK: Supple. No midline c-spine tenderness. Tenderness over the bilateral paraspinal regions with muscle spasm noted in the right trapezius muscle. CHEST: Clear to auscultation. No respiratory distress. HEART: Regular rate and rhythm. Normal peripheral pulses. ABDOMEN: Soft, nontender, nondistended. EXTREMITIES: Normal range of motion. No edema. SKIN: Warm, dry, no rash. NEURO: No focal deficits. No upper or lower extremity drift. No sensory deficits in arms or legs. No facial droop. Alert and oriented x3. PSYCH: Normal mood and affect. Course Course Emergency Course: Chart review performed. Patient's last office visit was for some abdominal pain. He is here after a head injury which occurred on 04/25/23. Triage vitals normal. Patient seen and evaluated, in no acute distress. Given age, cannot apply [place] C-spine or Head CT rules. Will do CT head and c-spine, pain medication. Patient has a ride home, will do muscle relaxer and oxycodone. Patient feeling much better after Valium and oxycodone. Will prescribe him ibuprofen 600 mg as well as Flexeril. Advised to follow up his primary care doctor urgently this week for monitoring of symptoms. The results of pertinent diagnostic studies and exam findings were discussed. The patient?s provisional diagnosis and plan of care were discussed with the patient and present family. The
[2023-04-29] MEDS: ACETAMINOPHEN 500 MG TABLET 1000 MG PO (11:24)
[2023-04-29] MEDS: oxyCODONE HCL (*CRX) 5 MG TAB IR PO (12:13)
[2023-04-29] MEDS: diazePAM (*CRX) 5 MG TABLET PO (12:14)
[2023-04-29 12:39] VITALS: BP 125/91; PULSE 62; RESP 16; TEMP 36.6; O2SAT 96
== END 2023-04-29 12:58 | disposition home or self-care (01) ==
PROVIDERS: Emergency Provider Student in an Organized Health Care Education/Training Program; PCP Family Medicine
DX: S06.0X0A Concussion without loss of consciousness, initial encounter (principal); M62.830 Muscle spasm of back; F17.200 Nicotine dependence, unspecified, uncomplicated; W22.09XA Striking against other stationary object, initial encounter; Y99.0 Civilian activity done for income or pay
CPT/HCPCS: 70450; 72125; 99284; A9270

== ENCOUNTER 2023-06-03 09:20 | Outpatient (CLI) | payer MEDICARE, SELFPAY ==
[2023-06-03 10:19] LABS: Influenza A QL RT-PCR Negative (Negative); Influenza B QL RT-PCR Negative (Negative); RSV RNA, RT-PCR Negative (Negative); SARS-CoV-2 RNA PCR Positive (Negative)
== END 2023-06-03 09:21 | disposition home or self-care (01) ==
LOC: CHSLAB 09:22
PROVIDERS: PCP Family Medicine; Visit Provider Nurse Practitioner Family
DX: U07.1 COVID-19 (principal); J06.9 Acute upper respiratory infection, unspecified
CPT/HCPCS: 87637

== ENCOUNTER 2023-09-04 12:25 | Outpatient (CLI) | payer MEDICARE, SELFPAY ==
--- NOTE | ~2023-09-04 | CT_ITS ---
EXAMINATION: CT abdomen w con DATE: 09/04/2023 13:15 INDICATION: Umbilical pain, upper abdominal pain. Nausea. Constipation. TECHNIQUE: Computed tomography (CT) of the abdomen was performed with 100 CC Omnipaque 350 intravenou s contrast. Automated exposure control and iterative reconstruction technique were employed. Exam dos e: 217.23 mGy-cm total exam DLP. COMPARISON: 08/26/2020 CT abdomen pelvis FINDINGS: The lung bases are clear of infiltrate or consolidation. Normal heart size. No pericardial or pleural effusion. Small sliding hiatal hernia. The liver, gallbladder, bile ducts, pancreas, pancreatic duct and spleen are unremarkable. Normal morphology of the adrenal glands. Approximately 3.7 mm mid right renal cyst. At least 7 small probable left renal cysts, measuring up t o approximately 7.5 mm maximal dimension. No urinary tract calculus or hydroureteronephrosis. There is atherosclerotic calcification of the abdominal aorta and common iliac arteries. No abdominal aortic aneurysm. No intraperitoneal or retroperitoneal mass lesion or adenopathy or ascites. Numerous diverticula of the left and right colon; no CT evidence of diverticulitis is detected. No meg wel obstruction is noted. There are occasional fluid levels of the small and large bowel. Small fat-containing umbilical hernia. Moderate degenerative changes of the lower thoracic and lumbar spine. IMPRESSION: Small fat-containing umbilical hernia Small sliding hiatal hernia Diverticulosis of the left and right colon Bilateral small renal cysts Reviewed, dictated and finalized at Location [facility]. Reviewed, dictated and finalized at location B.
[2023-09-04 12:42] LABS: Appearance Urine Clear (Clear); Basophils Absolute Auto 0.05 K/mm3 (0.00-0.10); Basophils Percent Auto 0.5 % (0.0-1.0); Bilirubin Urine Negative (Negative); Blood Urine Negative (Negative); Color Urine Yellow (Yellow); Eosinophils Absolute Auto 0.21 K/mm3 (0.02-0.50); Eosinophils Percent Auto 2.2 % (1.0-6.0); Glucose Urine UA Negative (Negative); Hematocrit 46.7 % (37.0-46.0); Hemoglobin 15.6 g/dL (12.4-15.3); Immature Granulocyte Absolute 0.05 K/mm3 (0.00-0.00); Immature Granulocyte Percent A 0.5 % (0.0-0.0); Ketones Urine Trace (Negative); Leukocyte Esterase Ur Negative LEU/UL (Negative); Lymphocytes Absolute Auto 2.46 K/mm3 (1.10-4.50); Lymphocytes Percent Auto 25.5 % (18.0-42.0); Mean Corpuscular HGB Conc 33.4 g/dL (32-36); Mean Corpuscular Hemoglobin 29.3 pg (27.0-31.0); Mean Corpuscular Volume 87.6 fL (78.0-102.0); Mean Platelet Volume 9.6 fl (8.7-11.0); Monocytes Percent Auto 6.2 % (2.0-11.0); Neutrophils Absolute Auto 6.26 K/mm3 (1.70-7.20); Neutrophils Percent Auto 65.1 % (50.0-70.0); Nitrate Urine Negative (Negative); Platelet Count Result 354 K/mm3 (150-420); Protein Urine Negative (Negative); Red Blood Count 5.33 M/mm3 (4.70-6.10); Red Cell Distribution Width 13.2 % (11.6-14.4); Specific Grav Ur >= 1.030 (1.010-1.020); Urobilinogen Urine 0.2 mg/dL (0.2-1.0); White Blood Count 9.6 K/mm3 (4.8-10.8)
[2023-09-04 12:56] LABS: Estimated Glomerular Filt Rate > 60
[2023-09-04 13:00] LABS: Add Urine Microscopic? YES; Bacteria Urine Rare /hpf; RBC Urine None seen /hpf (0-2); WBC Urine None seen /hpf (0-3)
[2023-09-04 13:11] LABS: Alanine Aminotransferase 26 U/L (16-63); Albumin Level 3.6 g/dL (3.4-5.0); Alkaline Phosphatase 81 U/L (46-116); Amylase 92 U/L (25-115); Anion Gap 11 mmol/L (8-16); Aspartate Amino Transferase 19 U/L (15-37); Bilirubin,Total 0.4 mg/dL (0.00-1.00); Blood Urea Nitrogen 13 mg/dL (7-18); Carbon Dioxide 26 mmol/L (21-32); Chloride 103 mmol/L (98-108); Glucose 97 mg/dL (70-99); Lipase 51 U/L (16-77); Magnesium 2.2 mg/dL (1.8-2.4); Osmolality Calculated 290 mOsm/kg (285-295); Prostate Specific Antigen 0.9 ng/mL (< OR = 4.0); Sodium 140 mmol/L (136-145); Total Protein 7.2 g/dL (6.4-8.2)
[2023-09-06 15:35] LABS: Vitamin D 25 Hydroxy 28 ng/mL (30-100)
== END 2023-09-04 12:26 | disposition home or self-care (01) ==
LOC: CHSLAB 12:27
PROVIDERS: PCP Family Medicine; Visit Provider Nurse Practitioner Family
DX: R39.12 Poor urinary stream (principal); R10.9 Unspecified abdominal pain; Z79.899 Other long term (current) drug therapy; Z87.898 Personal history of other specified conditions; K42.9 Umbilical hernia without obstruction or gangrene; K44.9 Diaphragmatic hernia without obstruction or gangrene; K57.90 Diverticulosis of intestine, part unspecified, without perforation or abscess without bleeding; N28.1 Cyst of kidney, acquired
CPT/HCPCS: 36415; 74160; 80053; 81001; 82150; 82306; 83690; 83735; 84153; 85025; Q9967

== ENCOUNTER 2023-12-04 08:23 | Emergency (ER) | payer MEDICARE, SELFPAY ==
[2023-12-04] VITALS (11 sets, daily range): BP systolic 104–145; BP diastolic 63–92; PULSE 54–81; RESP 9–24; TEMP 36.7; O2SAT 93–100
--- NOTE | ~2023-12-04 | XR_ITS ---
EXAMINATION: XR chest 1V portable 12/04/2023 08:55 INDICATION: Shortness of breath. Congestion. Cough. PROCEDURE: AP portable chest COMPARISON: 08/22/2020 FINDINGS: The lungs are clear. The cardiomediastinal silhouette is within normal limits. There are no pleural effusions. There is no pneumothorax suspected. IMPRESSION: 1: NO ACUTE CARDIOPULMONARY DISEASE. Reviewed, dictated and finalized at location B.
--- NOTE | 2023-12-04 08:29 | ED.SOB ---
HPI - SOB/Dyspnea General Chief Complaint: Shortness of Breath/Dyspnea Stated Complaint: SOB Time Seen by Provider: 12/04/23 08:29 Source: patient Mode of arrival: ambulatory Limitations: no limitations History of Present Illness HPI Narrative: 68-year-old male, smoker with a history of COPD on bronchodilators presents to the ER with a 1 day history of -- cough with mucoid sputum -- worsening shortness of breath which started this morning. -- Pleuritic chest pain no fever or chills no leg swelling MD elicited complaint: shortness of breath, cough and pain with inspiration Pertinent past history: COPD Onset (ago): day(s) ( 1 day) Severity: moderate Exacerbating factors: exertion Relieving factors: bronchodilators Known history of: COPD Associated symptoms: denies other symptoms, chest pain, pain with inspiration, cough, wheezing and sputum production Related Data Home oxygen amount: none Allergies Allergy/AdvReac Type Severity Reaction Status Date / Time No Known Allergies Allergy Verified 12/04/23 08:27 Review of Systems Review of Systems: All systems reviewed & are unremarkable except as noted in HPI and below ROS unobtainable: Yes unobtainable due to endotracheal tube Constitutional: Constitutional: Reports as per HPI and Reports no additional constitutional complaints Eyes: Eyes: Reports as per HPI and Reports no additional eye complaints ENT: Reports system reviewed and no additional complaints, except as documented and Reports as per HPI Cardiovascular: Cardiovascular: Reports as per HPI and Reports no additional cardiovascular complaints Respiratory: Respiratory: Reports as per HPI, Reports no additional respiratory complaints, Reports cough, Reports dyspnea and Reports wheezing Gastrointestinal: Gastrointestinal: Reports as per HPI, Reports no additional gastrointestinal complaints and Reports nausea Genitourinary: Genitourinary: Reports no additional male genitourinary complaints and Reports as per HPI Musculoskeletal: Musculoskeletal: Reports no additional musculoskeletal complaints and Reports as per HPI Comments: bilateral hip pain Integumentary/Breasts: Skin/Breast: Reports system reviewed and no additional complaints, except as docu and Reports as per HPI Neurologic: Reports system reviewed and no additional complaints, except as documented and Reports as per HPI Psychiatric: Psychiatric: Reports no additional psychiatric complaints and Reports as per HPI Endocrine: Endocrine: Reports no additional endocrine complaints and Reports as per HPI Hematologic/Lymphatic: Hematologic/Lymphatic: Reports no additional hematologic/lymphatic complaints and Reports as per HPI Allergic/Immunologic: Allergic/Immunologic: Reports no additional allergic/immunologic complaints and Reports as per HPI [facility] Past Medical History Medical History Chest pain made worse by breathing Colon polyp Tobacco abuse Weight loss Surgical History Surgical History Hx of shoulder surgery Social History Social History Smoking status: Current every day smoker Alcohol intake: never Substance use: current Substance use type: marijuana Lack of Transportation: No Lack of Food: Never True Current Housing: I Have Housing Concerned About Future Housing: No Difficulty Paying Gas/Electric Bills: No Difficulty Paying for Meds: No Currently Unemployed: No Education: High School Diploma/GED Difficulty w/ Childcare or Family Care: No Living arrangements: with family Occupation/Education: occupation Additional occupation/education comments: Works for [employer] Exam Narrative: afebrile. Hemodynamically stable. Oxygen saturation of 100% on room air with a respiratory rate of 15 Const: General: no acute distress Orientation/co
--- NOTE | 2023-12-04 08:40 | ECG_ITS ---
Test Date: 2023-12-04 08:59:29 Measurements Intervals [place] Rate: 52 P: 67 [place]: 221 QRS: 57 QRSD: 96 T: 63 QT: 397 QTc: 370 Interpretive Statements SINUS BRADYCARDIA WITH FIRST DEGREE AV BLOCK No previous ECG available for comparison Electronically Signed On 12-04-2023 14:22:37 CDT by Mireya Vargas M.D.
[2023-12-04] MEDS: methylPREDNISolone SOD SUCC 125 MG VIAL IV PUSH (08:51)
--- NOTE | 2023-12-04 08:53 | PC.NURSE ---
PT REPORTS HE IS FEELING MUCH BETTER, IS SITTING UP ON STRETCHER, BREATHING HAS IMPROVED. PT WAS GIVEN SOLUMEDROL MIXED IN A 10 SALINE FLUSH, PUSHED OVER 2 MINUTES. PT HAS AN EMESIS EPISODE POST ADMINISTRATION. PT THEN REPORTS HE IS FEELING MUCH BETTER POST ADMINISTRATION. ERP IS AWARE.
[2023-12-04] MEDS: IPRATROPIUM 0.5 MG/ALBUTEROL SULFATE 2.5 MG AMPUL.NEB 3 ML INHALATION (08:54)
[2023-12-04 09:00] LABS: Basophils Absolute Auto 0.05 K/mm3 (0.00-0.10); Basophils Percent Auto 0.6 % (0.0-1.0); Eosinophils Absolute Auto 0.34 K/mm3 (0.02-0.50); Eosinophils Percent Auto 4.2 % (1.0-6.0); Hematocrit 48.3 % (37.0-46.0); Hemoglobin 16.2 g/dL (12.4-15.3); Immature Granulocyte Absolute 0.05 K/mm3 (0.00-0.00); Immature Granulocyte Percent A 0.6 % (0.0-0.0); Lymphocytes Absolute Auto 2.96 K/mm3 (1.10-4.50); Lymphocytes Percent Auto 36.1 % (18.0-42.0); Mean Corpuscular HGB Conc 33.5 g/dL (32-36); Mean Corpuscular Hemoglobin 29.1 pg (27.0-31.0); Mean Corpuscular Volume 86.9 fL (78.0-102.0); Mean Platelet Volume 9.5 fl (8.7-11.0); Monocytes Absolute Auto 0.66 K/mm3 (0.10-0.90); Monocytes Percent Auto 8.1 % (2.0-11.0); Neutrophils Absolute Auto 4.13 K/mm3 (1.70-7.20); Neutrophils Percent Auto 50.4 % (50.0-70.0); Platelet Count Result 330 K/mm3 (150-420); Red Blood Count 5.56 M/mm3 (4.70-6.10); Red Cell Distribution Width 13.6 % (11.6-14.4); White Blood Count 8.2 K/mm3 (4.8-10.8)
[2023-12-04 09:19] LABS: D Dimer 0.44 mg/L (0.19-0.50); INR 0.9; Lactic Acid Reflex 1.9 mmol/L (0.4-2.0); Partial Thromboplastin Time 27.3 Sec (23.9-30.70); Prothrombin Time 10.4 Seconds (9.50-12.1)
--- NOTE | 2023-12-04 09:19 | PC.NURSE ---
PT IS SITTING UP ON STRETCHER, DENIES ANY COMPLAINTS OR ISSUES. NAD NOTED. PT IS AWAITING RESULTS AT THIS TIME. WILL CONTINUE TO MONITOR.
[2023-12-04 09:23] LABS: Alanine Aminotransferase 26 U/L (16-63); Albumin Level 3.7 g/dL (3.4-5.0); Alkaline Phosphatase 74 U/L (46-116); Anion Gap 11 mmol/L (4-12); Aspartate Amino Transferase 19 U/L (15-37); Bilirubin,Total 0.7 mg/dL (0.00-1.00); Blood Urea Nitrogen 14 mg/dL (7-18); Calcium 9.1 mg/dL (8.5-10.1); Carbon Dioxide 23 mmol/L (21-32); Chloride 101 mmol/L (98-108); Estimated CRCL calculation 65 ml/min; Estimated Glomerular Filt Rate > 60; Glucose 106 mg/dL (70-99); NT Pro B Type Natriuretic Pept 103 pg/mL (0-125); Osmolality Calculated 280 mOsm/kg (285-295); Potassium 4.2 mmol/L (3.5-5.1); Sodium 135 mmol/L (136-145); Total Protein 7.2 g/dL (6.4-8.2)
[2023-12-04 09:34] LABS: SARS-CoV-2 RNA PCR Negative (Negative)
[2023-12-04 09:37] LABS: Lipase 26 U/L (16-77)
[2023-12-04 09:38] LABS: Troponin I < 4.0 ng/L (0.00-60.4)
[2023-12-04 09:41] LABS: Influenza A QL RT-PCR Negative (Negative); Influenza B QL RT-PCR Negative (Negative); RSV RNA, RT-PCR Negative (Negative)
[2023-12-04] MEDS: AZITHROMYCIN 250 MG TABLET 500 MG PO (09:47)
== END 2023-12-04 10:15 | disposition home or self-care (01) ==
PROVIDERS: Emergency Provider Internal Medicine Critical Care Medicine; PCP Family Medicine
DX: J44.1 Chronic obstructive pulmonary disease with (acute) exacerbation (principal); F17.200 Nicotine dependence, unspecified, uncomplicated; Z20.822 Contact with and (suspected) exposure to COVID-19
CPT/HCPCS: 36415; 71045; 80053; 83605; 83690; 83880; 84484; 85025; 85380; 85610; 85730; 87637; 93005; 94640; 96374; 99284; A9270; J2919

== ENCOUNTER 2024-02-10 10:36 | Outpatient (CLI) | payer MEDICARE, SELFPAY ==
--- NOTE | ~2024-02-10 | XR_ITS ---
EXAMINATION: XR abdomen/kub 1V DATE: 02/10/2024 11:06 INDICATION: Unspecified abdominal pain. TECHNIQUE: A supine view of the abdomen on 2 radiographs was obtained. COMPARISON: CT abdomen 09/04/2023 FINDINGS: There are no dilated loops of bowel. There is a small volume of stool in the colon. There a re phleboliths in the pelvis. IMPRESSION: 1. Normal bowel gas pattern. Reviewed, dictated and finalized at location A.
[2024-02-10 10:51] LABS: Basophils Absolute Auto 0.09 K/mm3 (0.00-0.10); Eosinophils Absolute Auto 0.28 K/mm3 (0.02-0.50); Eosinophils Percent Auto 3.1 % (1.0-6.0); Hematocrit 49.4 % (37.0-46.0); Hemoglobin 16.9 g/dL (12.4-15.3); Immature Granulocyte Absolute 0.05 K/mm3 (0.00-0.00); Immature Granulocyte Percent A 0.6 % (0.0-0.0); Lymphocytes Percent Auto 35.2 % (18.0-42.0); Mean Corpuscular HGB Conc 34.2 g/dL (32-36); Mean Corpuscular Hemoglobin 29.1 pg (27.0-31.0); Mean Corpuscular Volume 85.2 fL (78.0-102.0); Mean Platelet Volume 9.8 fl (8.7-11.0); Monocytes Absolute Auto 0.86 K/mm3 (0.10-0.90); Monocytes Percent Auto 9.5 % (2.0-11.0); Neutrophils Absolute Auto 4.61 K/mm3 (1.70-7.20); Neutrophils Percent Auto 50.6 % (50.0-70.0); Platelet Count Result 346 K/mm3 (150-420); Red Cell Distribution Width 13.6 % (11.6-14.4); White Blood Count 9.1 K/mm3 (4.8-10.8)
[2024-02-10 12:39] LABS: Alanine Aminotransferase 18 U/L (16-63); Albumin Level 3.9 g/dL (3.4-5.0); Alkaline Phosphatase 95 U/L (46-116); Amylase 60 U/L (25-115); Anion Gap 10 mmol/L (4-12); Aspartate Amino Transferase 13 U/L (15-37); Bilirubin,Total 0.8 mg/dL (0.00-1.00); Blood Urea Nitrogen 14 mg/dL (7-18); Calcium 9.2 mg/dL (8.5-10.1); Carbon Dioxide 23 mmol/L (21-32); Chloride 99 mmol/L (98-108); Estimated Glomerular Filt Rate > 60; Glucose 85 mg/dL (70-99); Lipase 18 U/L (16-77); Osmolality Calculated 273 mOsm/kg (285-295); Potassium 4.2 mmol/L (3.5-5.1); Prostate Specific Antigen 0.8 ng/mL (< OR = 4.0); Sodium 132 mmol/L (136-145); Total Protein 6.9 g/dL (6.4-8.2)
== END 2024-02-10 10:37 | disposition home or self-care (01) ==
LOC: CHSLAB 10:38
PROVIDERS: PCP Nurse Practitioner Family; Visit Provider Nurse Practitioner Family
DX: R39.12 Poor urinary stream (principal); R10.9 Unspecified abdominal pain
CPT/HCPCS: 36415; 74018; 80053; 82150; 83690; 84153; 85025

== ENCOUNTER 2024-03-26 07:44 | Emergency (ER) | payer MEDICARE, SELFPAY ==
--- NOTE | ~2024-03-26 | XR_ITS ---
XR foot LT 2V Ordering provider: Toi Mcdaniel MD History: . heel pain X 1 YEAR/NO TRAUMA . Comparison: None. FINDINGS: BONES: No acute fracture or dislocation. Calcaneal spur. JOINT SPACES: Normal. No tarsal coalition. SOFT TISSUES: Normal. IMPRESSION: No acute osseous abnormality left foot. Calcaneal spur. Reviewed, dictated and finalized at location A.
[2024-03-26 07:48] VITALS: BP 169/84; PULSE 70; RESP 16; TEMP 36.3; O2SAT 99
[2024-03-26] MEDS: KETOROLAC (*BKC) 60 MG/2 ML VIAL IM (08:05)
--- NOTE | 2024-03-26 08:09 | ED.LOWEXIN ---
HPI - Extremity Injury (Lower) General Chief Complaint: Extremity Injury, Lower Stated Complaint: foot pain Time Seen by Provider: 03/26/24 07:52 Source: patient Mode of arrival: ambulatory Limitations: no limitations History of Present Illness HPI Narrative: this is a 68-year-old male with history of COPD that presents with some left foot and heel pain that has been ongoing off and on for the past year tender and painful with palpation and with walking otherwise no recent injuries no swelling no redness no erythema no warmth. Injury: Left: foot ( heel pain) Severity: moderate Severity scale (1-10): 6 Relieving factors: NSAID Exacerbating factors: weight bearing and palpation Related Data Allergies Allergy/AdvReac Type Severity Reaction Status Date / Time No Known Allergies Allergy Verified 03/26/24 07:51 Review of Systems Review of Systems: All systems reviewed & are unremarkable except as noted in HPI and below PMFSH Past Medical History Medical History Chest pain made worse by breathing Colon polyp Tobacco abuse Weight loss Surgical History Surgical History Hx of shoulder surgery Social History Social History Smoking status: Current every day smoker Alcohol intake: never Substance use: current Substance use type: marijuana Lack of Transportation: No Lack of Food: Never True Current Housing: I Have Housing Concerned About Future Housing: No Difficulty Paying Gas/Electric Bills: No Difficulty Paying for Meds: No Currently Unemployed: No Education: High School Diploma/GED Difficulty w/ Childcare or Family Care: No Living arrangements: with family Occupation/Education: occupation Additional occupation/education comments: Works for [employer] Exam Const: General: healthy appearing and no acute distress Nutritional Appearance: well nourished Limitations: no limitations Resp: Effort & Inspection: normal respiratory effort Auscultation: clear to auscultation bilaterally Cardio: Rate: regular rate Rhythm: regular rhythm GI: GI Palp: Yes Soft to palpation Skin: General skin exam: normal color Rashes: no rashes Wounds: no wounds Neuro: General: patient oriented x3, moves all extremities and no meningeal signs Extrem: Other: Tender left heel with palpation Course Course Emergency Course: patient received a 60mg IM dose of Toradol reassessment pains slightly improved, x-ray performed shows no acute fractures but does show calcaneal spurs in the heel of his left foot. Vital Signs Vital signs: Vital Signs Temperature 36.3 C L 03/26/24 07:48 Pulse Rate 70 03/26/24 07:48 Respiratory Rate 16 03/26/24 07:48 Blood Pressure 169/84 H 03/26/24 07:48 Pulse Oximetry 99 03/26/24 07:48 Oxygen Delivery Room Air 03/26/24 07:48 Temperature 36.3 C L 03/26/24 07:48 Pulse Rate 70 03/26/24 07:48 Respiratory Rate 16 03/26/24 07:48 Blood Pressure 169/84 H 03/26/24 07:48 Pulse Oximetry 99 03/26/24 07:48 Oxygen Delivery Room Air 03/26/24 07:48 Critical Care Time Critical Care Time Critical Care Time: No Discharge Plan Discharge Clinical Impression: Bilateral calcaneal spurs Patient Disposition: Home, Self-Care Condition: Stable Instructions: Antibiotic Form, Heel Spur (ED) Additional Instructions: advised to take medication as prescribed and follow up with primary within 1 week for further evaluation and possible referral to Podiatry. Prescriptions: New naproxen 500 mg tablet 500 mg PO BID Qty: 14 0RF Follow-up/Referrals: Jimmie Monroy DO [Primary Care Provider] - Time of Disposition: 08:13
== END 2024-03-26 08:25 | disposition home or self-care (01) ==
PROVIDERS: Emergency Provider Emergency Medicine; PCP Family Medicine
DX: M77.32 Calcaneal spur, left foot (principal); M77.31 Calcaneal spur, right foot
CPT/HCPCS: 73620; 96372; 99283; J1885